=== PATIENT | female | born 1965 | race African-American/Black ===

== ENCOUNTER 2020-05-23 11:17 | Emergency (ER) | payer MEDICAID ==
[~2020-05-23] VITALS: Ht 170.2 cm; Wt 79.0 kg
[2020-05-23] MEDS ORDERED: IBUPROFEN 600MG TABLET PO ONE (12:15)
[2020-05-23] MEDS ORDERED: IBUP-2029 MT (13:07)
[2020-05-23 13:41] VITALS: BP 175/86
== END 2020-05-23 13:42 | disposition home or self-care (01) ==
LOC: ER 11:17
DX: S90.02XA Contusion of left ankle, initial encounter (principal); X58.XXXA Exposure to other specified factors, initial encounter; Y93.89 Activity, other specified; R03.0 Elevated blood-pressure reading, without diagnosis of hypertension; Y92.89 Other specified places as the place of occurrence of the external cause
CPT/HCPCS: 73610; 73630; 99284